=== PATIENT | female | born 1995 | race American Indian/Alaskan Native ===

== ENCOUNTER 2019-11-28 18:20 | Outpatient (CLI) | payer MEDICAID ==
[2019-11-28 19:29] VITALS: BP 108/61
== END 2019-11-28 19:55 | disposition home or self-care (01) ==
LOC: TRG 18:20
PROVIDERS: ATTEND Obstetrics & Gynecology
DX: O36.8130 Decreased fetal movements, third trimester, not applicable or unspecified (principal); O47.03 False labor before 37 completed weeks of gestation, third trimester; Z3A.30 30 weeks gestation of pregnancy
CPT/HCPCS: 59025